=== PATIENT | female | born 1950 | race Caucasian/White ===

== ENCOUNTER 2016-11-03 13:32 | Outpatient (CLI) | payer MEDICARE | END 2016-11-03 13:33 | disposition home or self-care (01) | DX: D25.0 Submucous leiomyoma of uterus (principal); D25.2 Subserosal leiomyoma of uterus; N85.8 Other specified noninflammatory disorders of uterus ==

== ENCOUNTER 2017-03-01 08:46 | Outpatient (CLI) | payer MEDICARE | END 2017-03-01 08:47 | disposition home or self-care (01) | DX: E03.9 Hypothyroidism, unspecified (principal); E78.5 Hyperlipidemia, unspecified ==

== ENCOUNTER 2017-04-29 08:00 | Outpatient (CLI) | payer MEDICARE ==
[2017-04-29 18:03] LABS: BASOPHILS # (AUTO) 0.1 10^3/uL (0.0-0.1); BASOPHILS % (AUTO) 1.4 %; EOSINOPHILS # (AUTO) 0.2 10^3/uL (0.0-0.7); EOSINOPHILS % (AUTO) 3.1 %; HCT - HEMATOCRIT 42.8 % (37.0-47.0); HGB - HEMOGLOBIN 14.2 g/dL (12.0-16.0); LYMPHOCYTES # (AUTO) 2.2 10^3/uL (1.5-3.5); LYMPHOCYTES % (AUTO) 40.8 %; MEAN CORPUSCULAR HEMOGLOBIN 29.2 pg (27.0-31.0); MEAN CORPUSCULAR HGB CONC 33.1 g/dL (32.0-36.0); MEAN CORPUSCULAR VOLUME 88.3 fL (81.0-99.0); MEAN PLATELET VOLUME 7.5 fL (7.9-10.8); MONOCYTES # (AUTO) 0.5 10^3/uL (0.0-1.0); MONOCYTES % (AUTO) 9.7 %; NEUTROPHILS # (AUTO) 2.4 10^3/uL (1.5-6.6); NUCLEATED RED BLOOD CELLS AUTO 0.1 /100WBC; RED BLOOD COUNT 4.85 10^6/uL (4.20-5.40); RED CELL DISTRIBUTION WIDTH 13.2 % (12.0-15.0); UNCORRECTED WHITE BLOOD COUNT 5.3 x10^3/uL; WHITE BLOOD COUNT 5.3 x10^3/uL (4.8-10.8)
[2017-04-29 18:26] LABS: TOTAL T3 0.7 ng/mL (0.87-1.78)
[2017-04-29 19:01] LABS: MONO NEG QC NEGATIVE (Negative); MONO POS QC POSITIVE (Positive)
[2017-04-29 19:46] LABS: THYROID STIMULATING HORMONE 0.21 uIU/mL (0.34-5.60)
[2017-05-02 16:17] LABS: T3 REVERSE 21 ng/dL (8-25)
== END 2017-04-29 08:01 | disposition home or self-care (01) ==
LOC: LAB.F 08:00
PROVIDERS: ATTEND Physician Assistant
DX: E55.9 Vitamin D deficiency, unspecified (principal); R53.83 Other fatigue; M81.0 Age-related osteoporosis without current pathological fracture; E03.9 Hypothyroidism, unspecified
CPT/HCPCS: 36415; 82306; 84439; 84443; 84480; 84481; 84482; 85025; 86308; 86376; 86800

== ENCOUNTER 2017-11-07 11:32 | Outpatient (CLI) | payer MEDICARE ==
[2017-11-07 18:39] LABS: CREATININE 0.7 mg/dL (0.4-1.0)
[2017-11-07 18:44] LABS: THYROID STIMULATING HORMONE < 0.08 uIU/mL (0.34-5.60)
[2017-11-07 18:46] LABS: FREE T4 (FREE THYROXINE) 1.55 ng/dL (0.58-1.64)
[2017-11-07 18:51] LABS: TOTAL T3 0.91 ng/mL (0.87-1.78)
== END 2017-11-07 11:33 | disposition home or self-care (01) ==
LOC: LAB.F 11:32
PROVIDERS: ATTEND Physician Assistant
DX: E03.9 Hypothyroidism, unspecified (principal); R94.6 Abnormal results of thyroid function studies
CPT/HCPCS: 36415; 80048; 84439; 84443; 84480; 84481; 84482

== ENCOUNTER 2018-03-09 13:09 | Outpatient (CLI) | payer MEDICARE ==
--- NOTE | 2018-03-12 18:30 | DEXA Report ---
DEXA SCAN: 03/09/2018 INDICATION: Bone mineral density screening. TECHNIQUE: Dual energy x-ray absorptiometry (DXA) was performed on a JCD system. Regions measured are the AP spine, femoral neck, and, if needed, forearm. COMPARISON: None. In accordance with the International Society for Clinical Densitometry (ISCD) guidelines, data from previous exams may be reanalyzed using current recommendations and techniques. This is done to allow a more accurate basis for comparison with the current study. FINDINGS The data for the lumbar spine is as follows: REGION BMD (g/cm/cm) T-SCORE Z-SCORE L1 0.709 -3.5 -1.4 L2 0.758 -3.7 -1.6 L3 0.817 -3.2 -1.1 L4 0.786 -3.5 -1.4 L1-L4 0.769 -3.4 -1.3 NOTE: All evaluable vertebrae are used for classification. The data for the hip is as follows: REGION BMD (g/cm/cm) T-SCORE Z-SCORE Neck 0.580 -3.3 -1.4 TOTAL 0.599 -3.2 -1.5 NOTE: The femoral neck or total proximal femur, whichever is lowest, is used for classification. Lumbar spine L1-L4 bone mineral density 0.769 g/cm2. T-Score -3.4. Z-score - 1.3. WHO classification for spine is osteoporosis. Femoral neck bone mineral density 0.580 g/cm2. T-score -3.3. Z-score -1.4. WHO classification for hip is osteoporosis. IMPRESSION WHO CLASSIFICATION BASED ON THE INTERNATIONAL REFERENCE STANDARD IS OSTEOPOROSIS. FRACTURE RISK IS HIGH. RECOMMENDATION: Patients with diagnosis of osteoporosis or osteopenia should have regular bone mineral density assessment. For those eligible for Medicare, routine testing is allowed once every 2 years. Testing frequency can be increased for patients who have rapidly progressing disease or for those who are receiving medical therapy to restore bone mass. COMMENT World Health Organization (WHO) definitions for osteoporosis and osteopenia: NORMAL BMD: T-score at 1.0 or higher, fracture risk is low. OSTEOPENIA BMD: T-score between 1.0 and -2.5, fracture risk is increased. OSTEOPOROSIS BMD: T-score at 2.5 or lower, fracture risk high. National Osteoporosis Foundation recommends: 1. Obtain adequate dietary calcium (at least 1200 mg per day) and vitamin D (400 -800 international units per day). 2. Participate, as appropriate, in regular weightbearing and muscle- strengthening exercise. 3. Avoid tobacco use and reduce alcohol and caffeine intake. 4. For more detailed information see the website at www.NOF.org. TD: 03/09/2018 14:26 MTDD
== END 2018-03-09 13:10 | disposition home or self-care (01) ==
LOC: DI 13:09
PROVIDERS: ATTEND Physician Assistant
DX: M81.0 Age-related osteoporosis without current pathological fracture (principal)
CPT/HCPCS: 77080